=== PATIENT | female | born 1950 | race Caucasian/White ===

== ENCOUNTER 2016-04-19 12:01 | Emergency (ER) | payer BC ==
[2016-04-19] MEDS ORDERED: Sodium Chloride 0.9% 1000 ML 1,000 ML IV STA (12:07)
[2016-04-19] MEDS ORDERED: MOTRIN 600 MG PO ONE (12:08)
--- NOTE | 2016-04-19 12:12 | ERPHSYRPT ---
- History of Present Illness Time Seen by Provider: 04/19/16 12:03 Source: patient Physician History: CC: felt like might pass out Hx: 65 y/o patient of [facility] Mix. She has been exposed to flu in a coworker. She noted some flu like symptoms yesterday with watery eyes, rhinorrhea, muscle aches, mild cough. She went to [facility] today. While waiting she felt like she might pass out and was dizzy so was rushed to ER. No actual syncope. Describes so vertigo spinning. No headache complaint. She reports fever and chills at home. Took APAP this AM. No chest pain. Timing/Duration: yesterday Severity: moderate Allergies/Adverse Reactions: No Known Drug Allergies Allergy (Unverified 04/19/16 12:03) - Review of Systems Constitutional: Fever, Chills, Fatigue, Malaise Eyes: Tearing Ears, Nose, & Throat: Nose Congestion, Throat Pain Respiratory: Cough Cardiac: No Chest Pain, No Palpitations, No Syncope Abdominal/Gastrointestinal: Nausea, No Abdominal Pain, No Vomiting, No Diarrhea Genitourinary Symptoms: No Dysuria Musculoskeletal: No Back Pain, No Neck Pain Skin: No Rash Neurological: Dizziness, No Focal Weakness, No Headache, No Parasthesia All Other Systems: Reviewed and Negative - Past Medical History Pertinent Past Medical History: Yes Cardiac History: High Cholesterol, Hypertension - Social History Patient Lives Alone: No - Nursing Vital Signs Nursing Vital Signs: Initial Vital Signs Temperature 99.7 F Temperature Source Oral Pulse Rate 92 Respiratory Rate 18 Blood Pressure [] 141/73 - Physical Exam General Appearance: alert Eye Exam: PERRL/EOMI, eyes nml inspection Ears, Nose, Throat Exam: normal ENT inspection, moist mucous membranes Neck Exam: normal inspection, non-tender, supple, No meningismus Respiratory Exam: normal breath sounds, lungs clear, No respiratory distress Cardiovascular Exam: regular rate/rhythm, No murmur Gastrointestinal/Abdomen Exam: soft, No tenderness, No distention Back Exam: normal inspection Extremity Exam: normal inspection, normal range of motion Neurologic Exam: alert, oriented x 3, cooperative, sensation nml, No motor deficits Skin Exam: warm, dry, No rash - Course Nursing assessment & vital signs reviewed: Yes EKG Interpreted by Me: RATE (85), Sinus Rhythm, NORMAL AXIS, NORMAL INTERVALS ( QTc 424), NORMAL QRS, NORMAL ST-T (flat anterior T waves) - Radiology Exams cxr X-ray Interpretation: Discussed w/ radiologist, Negative Ordered Tests: Active Orders 24 hr Category Date Time Status Accucheck STAT Care 04/19/16 12:07 Active Regional Sales Director STAT Care 04/19/16 12:07 Active Clean Catch Urine Specimen STAT Care 04/19/16 12:07 Active EKG-ER Only STAT Care 04/19/16 12:07 Active IV Insertion STAT Care 04/19/16 12:07 Active Orthostatic Vital Signs STAT Care 04/19/16 12:07 Active Pulse Oximetry (ED) STAT Care 04/19/16 12:07 Active CHEST 1 VIEW (PORTABLE) Stat Exams 04/19/16 12:08 Completed CBC W DIFF Stat Lab 04/19/16 12:20 Completed CMP Stat Lab 04/19/16 12:20 Completed UA W/ MICROSCOPIC Stat Lab 04/19/16 13:45 Completed Medication Summary Discontinued Medications Generic Name Dose Route Start Last Admin Trade Name Freq PRN Reason Stop Dose Admin Sodium Chloride 1,000 mls @ 999 mls/hr 04/19/16 12:07 04/19/16 13:02 Sodium Chloride 0.9% 1000 Ml IV 04/19/16 13:07 999 mls/hr .Q1H1M STA Administration Sodium Chloride Confirm 04/19/16 13:00 Sodium Chloride 0.9% 1000 Ml Administered 04/19/16 13:01 Dose 1,000 mls @ ud .ROUTE .STK-MED ONE Ibuprofen 600 mg 04/19/16 12:08 04/19/16 13:03 Motrin 600 Mg PO 04/19/16 12:09 600 mg STAT ONE Administration Ibuprofen Confirm 04/19/16 13:00 Motrin 600 Mg Administered 04/19/16 13:01 Dose 600 mg .ROUTE .STK-MED ONE Lab/Rad Data: Laboratory Result Diagrams 04/19/16 12:20 04/19/16 12:20 Laboratory Results 04/19/16 04/19/16 04/19/16 Range/Units 13:45 12:20 12:20 WBC 6.0 (4.0-10.5) K/mm3 RBC 4.77 (4.1-5.4) M/mm3 Hgb 13.5 (12.0-16.0) gm/dl Hct 41.1 (35-47) % MCV 86.2 (78-100) fl MCH 28.3 (26-32) pg MCHC 32.8 (32-36) g/dl RDW 15.1 H (11.5-14.0) % Plt Count 287 (150-450) K/mm3 MPV 10.4 H (6-9.5) fl Gran % 68.7 H (36.0-66.0) % Lymphocytes % 15.2 L (24.0-44.0) % Monocytes % 14.9 H (0.0-12.0) % Eosinophils % 0.5 (0.00-5.0) % Basophils % 0.7 (0.0-0.4) % Basophils # 0.04 (0-0.4) Sodium 140 (136-145) mEq/L Potassium 3.9 (3.5-5.1) mEq/L Chloride 103 (98-107) mEq/L Carbon Dioxide 25.9 (21-32) mEq/L Anion Gap 14.9 (5-15) MEQ/L BUN 15 (9-20) mg/dL Creatinine 1.39 H (0.55-1.30) mg/dl Estimated GFR 41 ML/MIN Glucose 117 H (70-110) MG/DL Calcium 9.6 (8.5-10.1) mg/dL Total Bilirubin 0.3 (0.2-1.0) mg/dL AST 30 (15-37) U/L ALT 42 (12-78) U/L Alkaline Phosphatase 74 (46-116) U/L Serum Total Protein 7.9 (6.4-8.2) gm/dL Albumin 4.0 (3.4-5.0) g/dL Ur Collection Type CATH Urine Color YELLOW (YELLOW) Urine Appearance CLEAR (CLEAR) Urine pH 7.0 (5-6) Ur Specific [place] 1.020 (1.005-1.025) Urine Protein 30 (Negative) Urine Glucose (UA) NEGATIVE (NEGATIVE) mg/dL Urine Ketones NEGATIVE (NEGATIVE) Urine Nitrite NEGATIVE (NEGATIVE) Urine Bilirubin NEGATIVE (NEGATIVE) Urine Urobilinogen 0.2 (0-1) mg/dL Urine WBC (Auto) NEGATIVE (NEGATIVE) Urine RBC (Auto) NEGATIVE (0-5) Russel/ul Urine Bacteria RARE (NEGATIVE) /HPF Urine Mucus SLIGHT (NEGATIVE) /HPF Specimen Received 04/19/16 7905 - Progress Progress Note: 04/19/16 14:07 She feels better. IVF bolus given. She has mild dehydration and flu like syndrome. She declines tamiflu after discussion. Will release with instructions. Counseled pt/family regarding: lab results, diagnosis, need for follow-up, rad results - Departure Time of Disposition: 14:09 Departure Disposition: Home Clinical Impression: Dehydration, flu like syndrome, Dizziness Condition: Stable Critical Care Time: No Referrals: JANUARY MIX NP [Primary Care Provider] - Instructions: Viral Syndrome, Vertigo Additional Instructions: VIRAL ILLNESS 1. Rest at home and take any prescribed medications as directed or until gone. 2. Offer plenty of fluids as tolerated. 3. Acetaminophen or Ibuprofen as directed. 4. Be sure to follow up with your family physician or return to the emergency department if symptoms change or become worse. No driving today and stay with family. Drink plenty of fluids. Rx antivert if needed for dizziness. Follow up with LUIS Mix Friday. Prescriptions: Meclizine HCl 25 mg [Antivert 25 mg] 1 tab PO Q6H PRN PRN #20 tablet PRN Reason: dizziness
--- NOTE | 2016-04-19 12:28 | XRAY ---
Indication: Dizziness. Comparison: None Portable chest underinflated, crowding the lung bases. No focal infiltrate, consolidation, or large effusion. Heart is not enlarged. Bony thorax intact. Impression: Nonacute underinflated chest.
[2016-04-19 12:43] LABS: BASOPHIL % 0.7 % (0.0-0.4); Eosinophil % 0.5 % (0.00-5.0); Granulocytes % 68.7 % (36.0-66.0); Lymphocytes % 15.2 % (24.0-44.0); Mean Cell Volume 86.2 fl (78-100); Mean Corpuscular Hemoglobin 28.3 pg (26-32); Mean Platelet Volume 10.4 fl (6-9.5); Monocytes % 14.9 % (0.0-12.0); Platelet Count 287 K/mm3 (150-450); Red Blood Count 4.77 M/mm3 (4.1-5.4); Red Cell Distribution Width 15.1 % (11.5-14.0)
[2016-04-19] MEDS ORDERED: Sodium Chloride 0.9% 1000 ML 1,000 ML ONE (13:00)
[2016-04-19] MEDS ORDERED: MOTRIN 600 MG ONE (13:00)
[2016-04-19 13:20] LABS: ANION GAP 14.9 MEQ/L (5-15); BILIRUBIN,TOTAL 0.3 mg/dL (0.2-1.0); Carbon Dioxide 25.9 mEq/L (21-32); Potassium 3.9 mEq/L (3.5-5.1); Total Protein 7.9 gm/dL (6.4-8.2)
[2016-04-19 13:54] LABS: COMPLETE URINE MICROSCOPIC? YES; Collection Type CATH
[2016-04-19 14:03] LABS: Bacteria RARE /HPF (NEGATIVE); Mucus SLIGHT /HPF (NEGATIVE)
[2016-04-19 14:14] VITALS: BP 140/80; PULSE 90; O2SAT 98
== END 2016-04-19 14:23 | disposition home or self-care (01) ==
LOC: ED 12:01
DX: E86.0 Dehydration (principal); R42 Dizziness and giddiness; J34.89 Other specified disorders of nose and nasal sinuses; M79.1 Myalgia; R05 Cough; R50.9 Fever, unspecified; R53.81 Other malaise; E78.00 Pure hypercholesterolemia, unspecified; I10 Essential (primary) hypertension; Z79.899 Other long term (current) drug therapy
CPT/HCPCS: 36000; 36415; 71010; 80053; 81000; 82962; 85025; 93005; 93041; 96360; 99283; 99284; P9612

== ENCOUNTER 2016-05-16 05:14 | Emergency (ER) | payer BC ==
[2016-05-16] MEDS ORDERED: Phenergan 25 MG INJ IV ONE (05:23)
[2016-05-16] MEDS ORDERED: Hydromorphone 1 mg/ml Ampule IV ONE (05:23)
[2016-05-16] MEDS ORDERED: Sodium Chloride 0.9% 1000 ML 1,000 ML IV SCH (05:30)
--- NOTE | 2016-05-16 05:30 | ERPHSYRPT ---
- History of Present Illness Time Seen by Provider: 05/16/16 05:20 Historian: patient Exam Limitations: no limitations Physician History: FOR THE PAST 2 DAYS PT HAS HAD A MILDLY EDEMATOUS LEFT FOOT DORSUM WITHOUT INJURY; FOR THE PAST 13 HOURS CONSTANT CRAMPING LUQ ABDOMINAL PAIN WITH NAUSEA; FOR THE PAST 11 HOURS BILATERAL LOWER BACK PAIN. LAST BM WAS YESTERDAY & WNL. PT DENIES CHEST PAIN, SHORTNESS OF AIR, VOMITING, FEVER. Allergies/Adverse Reactions: No Known Drug Allergies Allergy (Unverified 04/19/16 12:03) Hx Tetanus, Diphtheria Vaccination/Date Given: Yes Hx Influenza Vaccination/Date Given: Yes Hx Pneumococcal Vaccination/Date Given: No - Review of Systems Constitutional: No Fever Respiratory: No Dyspnea Cardiac: No Chest Pain Abdominal/Gastrointestinal: Abdominal Pain, Nausea, No Vomiting, No Diarrhea Genitourinary Symptoms: No Dysuria Musculoskeletal: Other (LEFT FOOT SWELLING) Skin: No Rash Endocrine: No Excessive Sweating All Other Systems: Reviewed and Negative - Past Medical History Pertinent Past Medical History: Yes Cardiac History: High Cholesterol, Hypertension - Past Surgical History Respiratory: Other - Social History Smoking Status: Never smoker Exposure to second hand smoke: Yes Drug Use: none Patient Lives Alone: No - Nursing Vital Signs Nursing Vital Signs: Initial Vital Signs Temperature 98.4 F Temperature Source Oral Pulse Rate 83 Respiratory Rate 18 Blood Pressure [Right Arm] 146/76 Pain Intensity 0 - Physical Exam General Appearance: alert Eye Exam: PERRL/EOMI, eyes nml inspection Ears, Nose, Throat Exam: pharynx normal, moist mucous membranes Neck Exam: normal inspection Respiratory Exam: lungs clear Cardiovascular Exam: normal heart sounds Gastrointestinal/Abdomen Exam: soft, normal bowel sounds, tenderness (MILD LUQ ABDOMINAL TENDERNESS) Back Exam: normal range of motion, No rash Extremity Exam: normal inspection, pedal edema (+1 EDEMA OF LEFT FOOT DORSUM) Neurologic Exam: alert, cooperative Skin Exam: warm, dry - Course Nursing assessment & vital signs reviewed: Yes - CT Exams Abdomen/Pelvis CT Interpretation: Tele-radiologist Report (THE APPENDIX APPEARS NORMAL. THERE IS NO EVIDENCE OF ACUTE RENAL, URETERAL OR BOWEL ABNORMALITIES. THERE IS A SMALL GASTRIC HIATAL HERNIA. THERE ARE SIGNIFICANT DEGENERATIVE CHANGES OF THE LUMBAR SPINE, SYMPHYSIS PUBIS, SACROILIAC JOINTS AND HIPS. THERE ARE FINDINGS SUGGESTIVE OF PUBIC SYMPHYSITIS AND SACROILITIS. THERE IS NO EVIDENCE OF FRACTURES, SPINAL CANAL STENOSIS OR FINDINGS SUGGESTIVE OF ACUTE DISC PROTRUSIONS. THERE IS A 1.3 CM FOLLICLE IN THE LEFT OVARY WHICH CAN BE NORMAL FOR AGE.) Ordered Tests: Active Orders 24 hr Category Date Time Status Clean Catch Urine Specimen STAT Care 05/16/16 05:23 Active IV Insertion STAT Care 05/16/16 05:23 Active ABDOMEN AND PELVIS W/0 CONTRAS [CT] Stat Exams 05/16/16 05:23 Taken AMYLASE Stat Lab 05/16/16 05:46 Completed CBC W DIFF Stat Lab 05/16/16 05:46 Completed CMP Stat Lab 05/16/16 05:46 Completed HCG QUALITATIVE,SERUM Stat Lab 05/16/16 05:46 Completed LIPASE Stat Lab 05/16/16 05:46 Completed MAGNESIUM Stat Lab 05/16/16 05:46 Completed UA W/ MICROSCOPIC Stat Lab 05/16/16 06:00 Completed Medication Summary Generic Name Dose Route Start Last Admin Trade Name Freq PRN Reason Stop Dose Admin Sodium Chloride 1,000 mls @ 100 mls/hr 05/16/16 05:30 05/16/16 05:41 Sodium Chloride 0.9% 1000 Ml IV 06/15/16 05:29 100 mls/hr .Q10H FARA Administration Discontinued Medications Generic Name Dose Route Start Last Admin Trade Name Freq PRN Reason Stop Dose Admin Hydromorphone HCl 1 mg 05/16/16 05:23 05/16/16 05:42 Hydromorphone 1 Mg/Ml Ampule IV 05/16/16 05:24 1 mg STAT ONE Administration Hydromorphone HCl Confirm 05/16/16 05:36 Hydromorphone 1 Mg/Ml Ampule Administered 05/16/16 05:37 Dose 1 mg .ROUTE .STK-MED ONE Sodium Chloride Confirm 05/16/16 05:37 Sodium Chloride 0.9% 1000 Ml Administered 05/16/16 05:38 Dose 1,000 mls @ ud .ROUTE .STK-MED ONE Promethazine HCl 12.5 mg 05/16/16 05:23 05/16/16 05:42 Phenergan 25 Mg Inj IV 05/16/16 05:24 12.5 mg STAT ONE Administration Promethazine HCl Confirm 05/16/16 05:36 Phenergan 25 Mg Inj Administered 05/16/16 05:37 Dose 25 mg .ROUTE .STK-MED ONE Lab/Rad Data: Laboratory Result Diagrams 05/16/16 05:46 05/16/16 05:46 Laboratory Results 05/16/16 05/16/16 05/16/16 Range/Units 06:00 05:46 05:46 WBC (4.0-10.5) K/mm3 RBC (4.1-5.4) M/mm3 Hgb (12.0-16.0) gm/dl Hct (35-47) % MCV (78-100) fl MCH (26-32) pg MCHC (32-36) g/dl RDW (11.5-14.0) % Plt Count (150-450) K/mm3 MPV (6-9.5) fl Gran % (36.0-66.0) % Lymphocytes % (24.0-44.0) % Monocytes % (0.0-12.0) % Eosinophils % (0.00-5.0) % Basophils % (0.0-0.4) % Basophils # (0-0.4) Sodium 141 (136-145) mEq/L Potassium 3.9 (3.5-5.1) mEq/L Chloride 103 (98-107) mEq/L Carbon Dioxide 26.8 (21-32) mEq/L Anion Gap 15.1 H (5-15) MEQ/L BUN 16 (9-20) mg/dL Creatinine 1.24 (0.55-1.30) mg/dl Estimated GFR 46 ML/MIN Glucose 124 H (70-110) MG/DL Calcium 9.5 (8.5-10.1) mg/dL Magnesium 1.9 (1.8-2.4) mg/dL Total Bilirubin 0.3 (0.2-1.0) mg/dL AST 20 (15-37) U/L ALT 16 (12-78) U/L Alkaline Phosphatase 77 (46-116) U/L Serum Total Protein 8.4 H (6.4-8.2) gm/dL Albumin 4.4 (3.4-5.0) g/dL Amylase 45 (25-115) U/L Lipase 195 (73-393) U/L Serum , Qual NEGATIVE (Negative) Ur Collection Type CLEAN CATCH Urine Color YELLOW (YELLOW) Urine Appearance CLEAR (CLEAR) Urine pH 8.5 (5-6) Ur Specific [place] 1.015 (1.005-1.025) Urine Protein 30 (Negative) Urine Glucose (UA) NEGATIVE (NEGATIVE) mg/dL Urine Ketones NEGATIVE (NEGATIVE) Urine Nitrite NEGATIVE (NEGATIVE) Urine Bilirubin NEGATIVE (NEGATIVE) Urine Urobilinogen 0.2 (0-1) mg/dL Urine WBC (Auto) NEGATIVE (NEGATIVE) Urine RBC (Auto) TRACE-LYSED (0-5) Russel/ul Urine Microscopic WBC 0-2 (0-5) /HPF Ur Epithelial Cells FEW (FEW) /HPF Urine Bacteria MODERATE (NEGATIVE) /HPF Specimen Received 0316 0600 05/16/16 Range/Units 05:46 WBC 11.0 H (4.0-10.5) K/mm3 RBC 4.97 (4.1-5.4) M/mm3 Hgb 14.0 (12.0-16.0) gm/dl Hct 42.4 (35-47) % MCV 85.3 (78-100) fl MCH 28.2 (26-32) pg MCHC 33.0 (32-36) g/dl RDW 15.0 H (11.5-14.0) % Plt Count 391 (150-450) K/mm3 MPV 10.2 H (6-9.5) fl Gran % 67.6 H (36.0-66.0) % Lymphocytes % 21.4 L (24.0-44.0) % Monocytes % 8.3 (0.0-12.0) % Eosinophils % 2.3 (0.00-5.0) % Basophils % 0.4 (0.0-0.4) % Basophils # 0.04 (0-0.4) Sodium (136-145) mEq/L Potassium (3.5-5.1) mEq/L Chloride (98-107) mEq/L Carbon Dioxide (21-32) mEq/L Anion Gap (5-15) MEQ/L BUN (9-20) mg/dL Creatinine (0.55-1.30) mg/dl Estimated GFR ML/MIN Glucose (70-110) MG/DL Calcium (8.5-10.1) mg/dL Magnesium (1.8-2.4) mg/dL Total Bilirubin (0.2-1.0) mg/dL AST (15-37) U/L ALT (12-78) U/L Alkaline Phosphatase (46-116) U/L Serum Total Protein (6.4-8.2) gm/dL Albumin (3.4-5.0) g/dL Amylase (25-115) U/L Lipase (73-393) U/L Serum , Qual (Negative) Ur Collection Type Urine Color (YELLOW) Urine Appearance (CLEAR) Urine pH (5-6) Ur Specific [place] (1.005-1.025) Urine Protein (Negative) Urine Glucose (UA) (NEGATIVE) mg/dL Urine Ketones (NEGATIVE) Urine Nitrite (NEGATIVE) Urine Bilirubin (NEGATIVE) Urine Urobilinogen (0-1) mg/dL Urine WBC (Auto) (NEGATIVE) Urine RBC (Auto) (0-5) Russel/ul Urine Microscopic WBC (0-5) /HPF Ur Epithelial Cells (FEW) /HPF Urine Bacteria (NEGATIVE) /HPF Specimen Received - Departure Time of Disposition: 07:27 Departure Disposition: Home Clinical Impression: ABDOMINAL PAIN, ARTHRITIS, HTN Condition: Fair Critical Care Time: No Instructions: Abdominal Pain-Adult, Osteoarthritis Additional Instructions: FOLLOW UP WITH PRIVATE DOCTOR TOMORROW. \
[2016-05-16] MEDS ORDERED: Phenergan 25 MG INJ ONE (05:36)
[2016-05-16] MEDS ORDERED: Hydromorphone 1 mg/ml Ampule ONE (05:36)
[2016-05-16] MEDS ORDERED: Sodium Chloride 0.9% 1000 ML 1,000 ML ONE (05:37)
[2016-05-16 05:51] LABS: BASOPHIL % 0.4 % (0.0-0.4); Eosinophil % 2.3 % (0.00-5.0); Granulocytes % 67.6 % (36.0-66.0); Lymphocytes % 21.4 % (24.0-44.0); Mean Cell Volume 85.3 fl (78-100); Mean Corpuscular Hemoglobin 28.2 pg (26-32); Mean Platelet Volume 10.2 fl (6-9.5); Monocytes % 8.3 % (0.0-12.0); Platelet Count 391 K/mm3 (150-450); Red Blood Count 4.97 M/mm3 (4.1-5.4)
[2016-05-16 06:25] LABS: ALBUMIN 4.4 g/dL (3.4-5.0); ANION GAP 15.1 MEQ/L (5-15); BILIRUBIN,TOTAL 0.3 mg/dL (0.2-1.0); Carbon Dioxide 26.8 mEq/L (21-32); MAGNESIUM 1.9 mg/dL (1.8-2.4); Potassium 3.9 mEq/L (3.5-5.1); Total Protein 8.4 gm/dL (6.4-8.2)
[2016-05-16 06:29] LABS: Bacteria MODERATE /HPF (NEGATIVE); COMPLETE URINE MICROSCOPIC? YES; Collection Type CLEAN CATCH; Epithelial Cells FEW /HPF (FEW); Ph 8.5 (5-6); WBC 0-2 /HPF (0-5)
[2016-05-16 07:05] VITALS: BP 146/76; PULSE 83; O2SAT 95
--- NOTE | 2016-05-16 09:47 | XRAY ---
Indication: Abdomen/back pain, nausea, and vomiting. Multiple contiguous axial images obtained through the abdomen and pelvis without contrast as ordered. Comparison: None Lung bases demonstrates minimal bibasilar dependent atelectasis and scarring. Heart is not enlarged. Small hiatal hernia. Uncinate and head of the pancreas demonstrates mild peripancreatic stranding concerning for mild/early pancreatitis. Noncontrasted stomach and bowel loops appear nonobstructed. Sigmoid diverticulosis without diverticulitis. Normal appendix. No free fluid/air. Remaining liver, gallbladder, pancreas, spleen, adrenal glands, kidneys, ureters, bladder, and uterus appear unremarkable for noncontrast exam. Mild aortoiliac calcifications without AAA. Osseous structures intact with mild degenerative changes throughout the spine and minimal 4 mm anterolisthesis of L4 on L5. Impression: 1. Pancreatic head and uncinate stranding. Rule out pancreatitis. 2. Incidental colonic diverticulosis and small hiatal hernia. 3. Spinal degenerative spondylosis and minimal grade 1 L4 spondylolisthesis. Comment: Preliminary interpretation was made by [facility]. Pancreatic findings are not reported. I gave telephone report to Dr. Boo in the ER at 0941 hrs. on May 16, 2016. CTDI 23.19
== END 2016-05-16 07:40 | disposition home or self-care (01) ==
LOC: ED 05:14
DX: R10.32 Left lower quadrant pain (principal); M19.90 Unspecified osteoarthritis, unspecified site; I10 Essential (primary) hypertension; R11.0 Nausea; E78.00 Pure hypercholesterolemia, unspecified; R60.9 Edema, unspecified
CPT/HCPCS: 36000; 36415; 74176; 80053; 81000; 82150; 83690; 83735; 84703; 85025; 96360; 96361; 96374; 96375; 99284; J1170; J2550

== ENCOUNTER 2022-01-09 15:09 | Day surgery (SDC) | payer MEDICARE ==
[2022-01-09] MEDS ORDERED: Xylocaine 1% Vial 30 ML PF IJ ONE (15:10)
[2022-01-09] MEDS ORDERED: Depo-Medrol 40 MG/ML IM ONE (15:10)
[2022-01-09] MEDS ORDERED: BUPIVACAINE 0.5% VIAL IJ ONE (15:10)
--- NOTE | 2022-01-09 16:55 | XRAY ---
Indication: Left SI joint and bilateral greater trochanter bursa injections. Intraoperative fluoroscopy provided for 29 seconds. 4 digital spot image obtained prone submitted for interpretation demonstrates posterior needle tip projecting over the left SI joint. Additional needle tips lateral to the left and right greater trochanters with small amount of contrast injected for needle tip placement. Correlate with intraoperative findings/report.
--- NOTE | 2022-01-09 17:30 | XRAY ---
29 seconds of fluoroscopy was used in surgery for a left sacroiliac joint injection and bilateral hips greater trochanteric bursa injections.
== END 2022-01-09 16:52 | disposition home or self-care (01) ==
LOC: SDC-PAIN 15:09
PROVIDERS: ATTEND Psychiatry & Neurology Pain Medicine
DX: M46.1 Sacroiliitis, not elsewhere classified (principal); M70.62 Trochanteric bursitis, left hip; M70.61 Trochanteric bursitis, right hip; Z79.899 Other long term (current) drug therapy
CPT/HCPCS: 20610; 27096; 73521; 77002; G0260; J1030; J2001; Q9966

== ENCOUNTER 2022-04-10 14:12 | Day surgery (SDC) | payer MEDICARE ==
[2022-04-10] MEDS ORDERED: LIDOCAINE HCL 1% 50 MG/5 ML VL PF IJ ONE (14:13)
[2022-04-10] MEDS ORDERED: BUPIVACAINE 0.5% VIAL IJ ONE (14:13)
[2022-04-10] MEDS ORDERED: Depo-Medrol 40 MG/ML IM ONE (14:13)
--- NOTE | 2022-04-10 17:14 | XRAY ---
Indication: Left hip and left greater trochanter bursa injection. Intraoperative fluoroscopy provided for 16 seconds. 2 digital spot image submitted for interpretation demonstrates needle tip projecting lateral to the left femur neck. Second needle tip lateral to the greater trochanter. Small amount of contrast injected for both needle tip placement. Correlate with intraoperative findings/report.
--- NOTE | 2022-04-11 10:46 | XRAY ---
16 seconds fluoroscopy time in surgery for intra-articular and greater trochanter of the left hip.
== END 2022-04-10 16:45 | disposition home or self-care (01) ==
LOC: SDC-PAIN 14:12
PROVIDERS: ATTEND Psychiatry & Neurology Pain Medicine
DX: M16.12 Unilateral primary osteoarthritis, left hip (principal); Z79.899 Other long term (current) drug therapy
CPT/HCPCS: 20610; 73502; 77002; J1030; J2001; Q9966